=== PATIENT | female | born 1990 | race American Indian/Alaskan Native ===

== ENCOUNTER 2016-11-21 11:57 | Emergency (ER) | payer SELFPAY ==
[2016-11-21 12:30] LABS: Basophils % (Auto) 0.6 % (0.0-1.8); Eosinophils % (Auto) 4.9 % (0.0-4.3); Hematocrit 40.6 % (30.3-42.9); Hemoglobin 13.1 gm/dl (10.1-14.3); Mean Corpuscular HGB Conc 32 % (30-34); Mean Corpuscular Volume 78 fl (79-97); Platelet Count 379 K/mm3 (140-440); Red Blood Count 5.21 M/mm3 (3.65-5.03); Red Cell Distribution Width 14.1 % (13.2-15.2); White Blood Count 11.1 K/mm3 (4.5-11.0)
[2016-11-21 12:41] LABS: Mean Corpuscular Hemoglobin 25 pg (28-32)
[2016-11-21] MEDS ORDERED: MOTRIN PO ONE (16:51)
[2016-11-21 17:00] VITALS: BP 104/65
--- NOTE | 2016-11-21 17:56 | Emergency Department Report ---
Entered by SAVANAH GORDON, acting as scribe for NEDA DAWSON NP. ED ENT HPI - General Chief complaint: Sore Throat Stated complaint: THROAT/EAR PAIN Time Seen by Provider: 11/21/16 15:29 Source: patient Mode of arrival: Ambulatory Limitations: No Limitations - History of Present Illness Initial comments: This is a 26 year old female patient well-nourished with nontoxic or ill in appearance that presents to the ED for evaluation of severe sore throat with associated right ear pain. The throat pain started Tuesday (5 days ago), but the ear pain developed yesterday. Patient describes throat pain as "swallowing razer blades". 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 She denies fever and chills, but notes myalgia a few days ago. Denies ear drainage, SOB, CP, abd pain, stiff neck, headache, numbness, tingling, visual changes, cough, or rhinorrhea. The patient works in childcare. Patient denies any drug allergies. Patient denies PMH. MD complaint: sore throat, ear pain (right) -: Gradual, days(s) (5) Location: R ear, throat Severity: moderate Severity scale (0 -10): 10 Quality: constant Consistency: constant Improves with: none Worsens with: swallowing Associated Symptoms: pain with swallowing, sore throat. denies: fever, cough, gum swelling, toothache, tinnitus, hearing loss, discharge from ear, rhinorrhea - Related Data Previous Rx's Medication Instructions Recorded Last Taken Type Amoxicillin/K Clav Tab [Augmentin 1 tab PO Q12HR #20 tab 11/21/16 Unknown Rx 875 mg] Ibuprofen [Motrin 600 MG tab] 600 mg PO Q8H PRN #20 tablet 11/21/16 Unknown Rx Allergies Allergy/AdvReac Type Severity Reaction Status Date / Time No Known Allergies Allergy Verified 11/21/16 12:07 ED Dental HPI - General Chief complaint: Sore Throat Stated complaint: THROAT/EAR PAIN Time Seen by Provider: 11/21/16 15:29 Source: patient Mode of arrival: Ambulatory Limitations: No Limitations - Related Data Previous Rx's Medication Instructions Recorded Last Taken Type Amoxicillin/K Clav Tab [Augmentin 1 tab PO Q12HR #20 tab 11/21/16 Unknown Rx 875 mg] Ibuprofen [Motrin 600 MG tab] 600 mg PO Q8H PRN #20 tablet 11/21/16 Unknown Rx Allergies Allergy/AdvReac Type Severity Reaction Status Date / Time No Known Allergies Allergy Verified 11/21/16 12:07 ED Review of Systems Comment: All other systems reviewed and negative Constitutional: no symptoms reported. denies: chills, fever Eyes: denies: eye pain ENT: ear pain, throat pain. denies: congestion Respiratory: denies: cough, shortness of breath, wheezing Cardiovascular: denies: chest pain Endocrine: no symptoms reported Gastrointestinal: denies: abdominal pain, nausea, vomiting, diarrhea Genitourinary: denies: urgency, dysuria, frequency Musculoskeletal: denies: back pain Skin: denies: rash Neurological: denies: headache Psychiatric: denies: anxiety, depression ED Past Medical Hx - Past Medical History Previous Medical History?: No - Surgical History Past Surgical History?: No - Social History Smoking Status: Never Smoker Substance Use Type: Alcohol - Medications Home Medications: Home Medications Medication Instructions Recorded Confirmed Last Taken Type Amoxicillin/K Clav Tab [Augmentin 1 tab PO Q12HR #20 tab 11/21/16 Unknown Rx 875 mg] Ibuprofen [Motrin 600 MG tab] 600 mg PO Q8H PRN #20 tablet 11/21/16 Unknown Rx ED Physical Exam - General Limitations: No Limitations General appearance: alert, in no apparent distress, other (non toxic appearing ) - Head Head exam: Present: atraumatic, normocephalic, normal inspection - Eye Eye exam: Present: normal appearance, PERRL, EOMI. Absent: scleral icterus, conjunctival injection, nystagmus, periorbital swelling, periorbital tenderness Pupils: Present: normal accommodation - ENT ENT exam: Present: mucous membranes moist, normal external ear exam - Expanded ENT Exam Expanded TM/Canal exam: Erythema: Right TM, Bulging: Right TM Mouth exam: Present: normal external inspection, tongue normal. Absent: drooling, trismus, muffled voice, tongue elevation, laceration Teeth exam: Present: normal inspection. Absent: dental caries, fractured tooth #, dental tenderness #, gingival enlargement Throat exam: Positive: tonsillar erythema, tonsillomegaly (2+), tonsillar exudate, other (Uvula midline. No abscess noted. No swelling.). Negative: R peritonsillar mass, L peritonsillar mass - Neck Neck exam: Present: normal inspection, full ROM. Absent: tenderness, meningismus, lymphadenopathy, thyromegaly - Respiratory Respiratory exam: Present: normal lung sounds bilaterally. Absent: respiratory distress, wheezes, rales, rhonchi, stridor, chest wall tenderness, accessory muscle use, decreased breath sounds, prolonged expiratory - Cardiovascular Cardiovascular Exam: Present: regular rate, normal rhythm, normal heart sounds. Absent: bradycardia, tachycardia, irregular rhythm, systolic murmur, diastolic murmur - GI/Abdominal GI/Abdominal exam: Present: soft, normal bowel sounds. Absent: distended, tenderness - Extremities Exam Extremities exam: Present: normal inspection, full ROM, normal capillary refill. Absent: tenderness, pedal edema, joint swelling, calf tenderness - Back Exam Back exam: Present: normal inspection, full ROM. Absent: tenderness, CVA tenderness (R), CVA tenderness (L), muscle spasm, paraspinal tenderness, vertebral tenderness, rash noted - Neurological Exam Neurological exam: Present: alert, oriented X3, CN II-XII intact, normal gait, reflexes normal - Psychiatric Psychiatric exam: Present: normal affect, normal mood - Skin Skin exam: Present: warm, dry, intact, normal color ED Course Vital Signs 11/21/16 12:08 Temperature 98.8 F Pulse Rate 86 Respiratory 20 Rate Blood Pressure 104/64 O2 Sat by Pulse 100 Oximetry - Reevaluation(s) Reevaluation #1: 11/21/16 16:50 Patient is able to speak in full sentences with no signs of distress noted. ED Medical Decision Making - Lab Data Result diagrams: 11/21/16 12:14 - Medical Decision Making Ed course: States wheezing to a few mother presents with exudative tonsillitis and otitis media 1- patient was examined by myself. 2+ tonsillitis with exudate as well as otitis media has been noted upon my exam. Uvula midline. No abscess or swelling noted. Patient be treated with Augmentin 875 10 days. 2- patient was instructed to finish full course of antibiotic that was prescribed. Patient is also instructed to follow-up with her primary care doctor in 3-5 days or if symptoms worsen and continue such as facial swelling, pus, drainage, fever, chills, difficulty breathing, difficulty swallowing, chest pain or shortness of breath return to the emergency room as was possible. 3- at time time of discharge, the patient does not seem toxic or ill in appearance. No acute signs of distress noted. Patient agrees to discharge treatment plan of care. No further questions noted by the patient. ED Disposition Clinical Impression: Tonsillar exudate Otitis media Qualifiers: Otitis media type: unspecified Chronicity: unspecified Laterality: right Qualified Code(s): H66.91 - Otitis media, unspecified, right ear Disposition: DC- TO HOME OR SELFCARE Is pt being admited?: No Does the pt Need Aspirin: No Condition: Stable Instructions: Tonsillitis (ED), Otitis Media (ED), Amoxicillin/Clavulanate Potassium (By mouth) Additional Instructions: follow-up with your primary care doctor in 3-5 days or if symptoms worsen and continue such as facial swelling, pus, drainage, fever, chills, difficulty breathing, difficulty swallowing, chest pain or shortness of breath return to the emergency room as was possible. Take full course of antibiotics as prescribed. Prescriptions: Amoxicillin/K Clav Tab [Augmentin 875 mg] 1 tab PO Q12HR #20 tab Ibuprofen [Motrin 600 MG tab] 600 mg PO Q8H PRN #20 tablet PRN Reason: Pain Referrals: PRIMARY CARE, [Primary Care Provider] - 3-5 Days MELODY GARNER JR, MD [Staff Physician] - 3-5 Days [facility] [Outside] - 3-[address] [facility] [place] [Outside] - 3-5 Days Forms: Work/School Release Form(ED) This documentation as recorded by the EVAN jackson SHALANE,accurately reflects the service I personally performed and the decisions made by SAMIR rodriguez MARTIN, STEPHEN.
== END 2016-11-21 17:21 | disposition home or self-care (01) ==
LOC: ED 11:57
DX: H66.91 Otitis media, unspecified, right ear (principal); J03.90 Acute tonsillitis, unspecified
CPT/HCPCS: 36415; 84703; 85025; 87430; 99283

== ENCOUNTER 2017-07-20 15:35 | Emergency (ER) | payer SELFPAY ==
[2017-07-20 17:11] VITALS: BP 100/67
--- NOTE | 2017-07-20 20:32 | XRay Report ---
FINAL REPORT EXAM: XR FOOT 3+V RT HISTORY: FOOT PAIN/INJURY TECHNIQUE: Three views right foot were performed Comparison: None FINDINGS: There is normal bony mineralization. No fracture or dislocation identified. No radiopaque foreign body or soft tissue gas. The forefoot aligns normally with the midfoot. The base of the metatarsals are intact. Preserved longitudinal arch. No calcaneal spurring. Mild soft tissue prominence over the dorsum of the midfoot. IMPRESSION: No acute fracture or dislocation. No radiopaque foreign body or soft tissue gas.
--- NOTE | 2017-07-20 21:43 | Emergency Department Report ---
HPI - General Chief Complaint: Extremity Injury, Lower Time Seen by Provider: 07/20/17 20:51 - HPI HPI: The patient's is a 27 yo female whom presents for evaluation of right foot pain. The patient reports right foot pain since twisting her foot this morning , greater than 12 hours prior to my evaluation. She states that her pain has been constant since onset, moderate in severity, exacerbated with weightbearing and ambulation, improved with elevation of the foot. ED Past Medical Hx - Past Medical History Hx Asthma: Yes - Surgical History Additional Surgical History: EYE - Social History Smoking Status: Never Smoker Substance Use Type: Alcohol - Medications Home Medications: Home Medications Medication Instructions Recorded Confirmed Last Taken Type Amoxicillin/K Clav Tab [Augmentin 1 tab PO Q12HR #20 tab 11/21/16 Unknown Rx 875 mg] Ibuprofen [Motrin 600 MG tab] 600 mg PO Q8H PRN #20 tablet 11/21/16 Unknown Rx Ibuprofen [Motrin] 800 mg PO Q8HR PRN #15 tablet 07/20/17 Unknown Rx traMADol [Ultram 50 MG tab] 50 mg PO Q6HR PRN #15 tablet 07/20/17 Unknown Rx ED Review of Systems ROS: Stated complaint: FOOT INJURY Other details as noted in HPI Constitutional: denies: fever ENT: denies: throat or neck pain Respiratory: denies: cough, shortness of breath Cardiovascular: denies: chest pain Endocrine: denies unexplained weight loss or gain Gastrointestinal: denies: abdominal pain, nausea Genitourinary: denies: dysuria Musculoskeletal: reports right foot pain denies: leg swelling Skin: denies: rash Neurological: denies: headache Hematological/Lymphatic: denies: easy bleeding or easy bruising Psych: denies sadness or hopelessness Physical Exam - Physical Exam Vital Signs: Vital Signs 07/20/17 17:07 Temperature 97.6 F Pulse Rate 76 Respiratory 16 Rate Blood Pressure 100/67 O2 Sat by Pulse 99 Oximetry Physical Exam: General: well-nourished, well-developed, no acute distress Head: Normocephalic, atraumatic Eyes: normal sclera ENT: Mucous membranes are pink and moist Neck: trachea midline, neck supple, No neck stiffness, no cervical adenopathy Respiratory: Breath sounds equal bilaterally, no wheezing, rales, or rhonchi Cardio: S1 and S2 present, no murmurs, rubs, gallops, capillary refill is brisk Musc: Right dorsal lateral midfoot tends to palpation present, no redness, swelling, or obvious deformity, distal sensation and motor function in the foot and toes intact, capillary refill is brisk Skin: No rash Neuro: no facial drooping, normal speech Psych: Normal affect ED Course Vital Signs 07/20/17 17:07 Temperature 97.6 F Pulse Rate 76 Respiratory 16 Rate Blood Pressure 100/67 O2 Sat by Pulse 99 Oximetry ED Medical Decision Making - Medical Decision Making The patient's and examined by myself. The patient is given a tablet of Motrin for pain. X-ray of the right foot is obtained and is negative for fracture or dislocation. The patient was reevaluated and reported that their symptoms were markedly improved. The patient is stable for discharge with outpatient follow- up. The patient is given follow-up and return instructions. The patient expressed understanding and agreed with the plan. The patient is discharged in stable condition. Critical care attestation.: If time is entered above; I have spent that time in minutes in the direct care of this critically ill patient, excluding procedure time. ED Disposition Clinical Impression: Acute pain of right foot Disposition: DC-01 TO HOME OR SELFCARE Is pt being admited?: No Does the pt Need Aspirin: No Condition: Stable Instructions: Arthralgia (ED) Referrals: ANDREA MONTANEZ MD [Primary Care Provider] - 3-5 Days ADELA GOLD MD [Staff Physician] - 3-5 Days Time of Disposition: 21:33
[2017-07-20] MEDS ORDERED: MOTRIN PO ONE ×2 (21:49)
== END 2017-07-20 21:51 | disposition home or self-care (01) ==
LOC: ED 15:35
DX: M79.671 Pain in right foot (principal)
CPT/HCPCS: 99283